=== PATIENT | female | born 1980 | race African-American/Black ===

== ENCOUNTER 2018-11-19 02:54 | Emergency (ER) | payer MEDICAID ==
[~2018-11-19] VITALS: Ht 175.3 cm; Wt 106.0 kg
[2018-11-19] MEDS ORDERED: KETOROLAC 60MG/2ML VIAL IM ONE (04:00)
[2018-11-19 05:41] VITALS: BP 119/69
== END 2018-11-19 05:41 | disposition home or self-care (01) ==
LOC: ER 02:54
DX: K08.89 Other specified disorders of teeth and supporting structures (principal); Z98.890 Other specified postprocedural states; Z88.0 Allergy status to penicillin; Z88.2 Allergy status to sulfonamides
CPT/HCPCS: 81025; 96372; 99283; J1885